=== PATIENT | male | born 1960 | race Caucasian/White ===

== ENCOUNTER → 2017-01-08 | Outpatient (REF) ==
[~2017-01-08] MED LIST: ASPIRIN E.C. 8181 MG PO; BYSTOLIC5 MG PO; CRESTOR 10MG10 MG PO; FISH OIL500 MG PO; MULTIPLE VITAMI1 CAP PO; NIACOR500 MG PO; PRINIVIL20 MG PO; VITAMIN C500 MG PO; VITAMIN D1000 IU PO
[2017-01-08 11:21] LABS: THYROID STIMULATING HORMONE 2.25 uIU/mL (0.465-4.680)
== END ==
LOC: ZLAB.WCH 10:14
PROVIDERS: Family Medicine
DX: Z01.89 Encounter for other specified special examinations (principal)

== ENCOUNTER → 2017-01-11 | Outpatient (REF) | LOC: COL.CARD 13:41 | DX: Z02.89 Encounter for other administrative examinations (principal) ==